=== PATIENT | male | born 1950 | race Caucasian/White ===

== ENCOUNTER → 2016-08-23 | Outpatient (CLI) | payer MEDICARE, BC ==
[~2016-08-23] MED LIST: ASPIRIN 81M81 MG/TA2 PO; NORVASC 5MG5 MG/TAB PO; PRAVACHOL 40MG40 MG PO; PRINZIDE 12.5 M1 TA1 PO; ZYRTEC 10MG10 MG PO
== END ==
LOC: COL.RAD 15:30
DX: B18.2 Chronic viral hepatitis C (principal)

== ENCOUNTER → 2016-09-28 | Outpatient (CLI) | payer MEDICARE, BC ==
[~2016-09-28] VITALS: Ht 182.9 cm; Wt 107.2 kg
[2016-09-28] VITALS (10 sets, daily range): BP systolic 131–160; BP diastolic 78–101; PULSE 56–91
[2016-09-28 14:05] LABS: INR 1.1 (0.8-3.0); PROTHROMBIN TIME 12.2 SECONDS (9.7-12.8)
== END ==
LOC: COL.RAD 12:39
PROVIDERS: Physician Assistant
DX: B18.2 Chronic viral hepatitis C (principal)
CPT/HCPCS: 26396